=== PATIENT | female | born 1940 | race Caucasian/White ===

== ENCOUNTER 2019-06-17 13:47 | Inpatient (IN) | payer OTHER ==
[2019-06-17 14:01] VITALS: BMI 31.2
--- NOTE | 2019-06-17 14:29 | PDOC ---
Attending Attestation - Resident Resident Name: AdrianJose De Jesus - ED Attending Attestation I have performed the following: I have examined & evaluated the patient, The case was reviewed & discussed with the resident, I agree w/resident's findings & plan, Exceptions are as noted - HPI HPI: 06/17/19 14:29 79y F hx of suspected afib (on pradaxa), dm (on metformin), dementia presents via EMS for AMS. Per EMS, the pt herself called EMS as her 9 year old was loss , causing trouble. Pt denies any complaints currently. denies any cp, sob, cough , fever/chills, abd pain, le edema. 06/17/19 15:03 case dw family - apparently there is concern with her ability to live alone and take her medications consistently. dementia has been worsening recently. there has been concern for - Physicial Exam PE: 06/17/19 14:39 GENERAL: The patient is alert and oriented x 2 (self, place), Nontoxic - in no acute distress. HEAD: Normocephalic, atraumatic. EYES: extraocular movements intact, sclera anicteric, conjunctiva clear. ENT: Normal voice, Moist mucous membranes. NECK: Normal range of motion, supple LUNGS: Breath sounds equal, clear to auscultation bilaterally. No wheezes, no rhonchi, no rales. HEART: irregularly irregular. no murmers ABDOMEN: Soft, nontender, No guarding, no rebound.No CVA tenderness EXTREMITIES: Normal range of motion, no edema. No cyanosis. No erythema, or tenderness. NEUROLOGICAL: No facial assymetry, Normal speech, moving all 4 extremities spontaneously and symmetrically PSYCH: Normal mood, normal affect. SKIN: Warm, Dry, normal turgor, - Critical Care Time Total Critical Care Time: 35 Critical Care Statement: The care of this patient involved high complexity decision making to prevent further life threatening deterioration of the patient 's condition and/or to evaluate & treat vital organ system(s) failure or risk of failure. - Medical Decision Making 06/17/19 14:50 upon arrival pt noted to be tachycardic to 140 on EKG, irregularly irregular - afib - bp stable unclear if pt is on any rate control meds intiially, however family arrived pt is on dilitiazem will give 10mg diliazem IV 06/17/19 15:05 pts HR improved after dilitazem 10mg - HR currently in 70s 06/17/19 18:27 labs reviewed cmp hemolyzed - awiaitng repeat results will admit for further management of afib and possible nh placement 06/17/19 18:40 cmp returned noted for mild hypokalemia will replete will admit for further management to tele Heart Score/ECG Review - ECG Impressions Comment:: 06/17/19 15:40 EKG #1 Performed 14:05 Rate of 144 irregularly irregular abnormal R wave progression impresion:afib w rvr EKG 2 performed at 15:15 rate of 91 left axis devaition irregularly irregular impression: afib
--- NOTE | 2019-06-17 14:49 | PDOC ---
History of Present Illness - General Chief Complaint: Altered Mental Status Stated Complaint: Altered Mental Status Time Seen by Provider: 06/17/19 14:25 History Source: Patient Exam Limitations: No Limitations - History of Present Illness Initial Comments: 06/17/19 15:24 79 yo F with a hx of atrial fibrillation (on pradaxa), DM (on metformin) and dementia presents to the emergency department via EMS for AMS and placement per [facility]. Per EMS, the patient called 911 to report her 9 year old daughter "lost". Per the family, they stated the patient has been having worsening mental status for the past few months with increasing forgetfulness and confusion. The patient endorses forgetting to take some of her scheduled medications. Per the [facility], they are amendable to placing her in a facility for care and management. Per the patient, she denies pain. Allergies: NKDA Past History - Past Medical History Allergies/Adverse Reactions: Allergies Allergy/AdvReac Type Severity Reaction Status Date / Time No Known Allergies Allergy Verified 06/17/19 13:54 Home Medications: Ambulatory Orders Atorvastatin Ca [Lipitor] 10 mg PO DAILY 06/17/19 Dabigatran Etexilate Mesylate [Pradaxa -] 150 mg PO BID 06/17/19 Diltiazem HCl [Diltiazem 24Hr ER (Cd)] 240 mg PO DAILY 06/17/19 Escitalopram Oxalate [Lexapro -] 10 mg PO DAILY 06/17/19 Metoprolol Succinate 50 mg PO DAILY 06/17/19 metFORMIN HCL [Metformin ER Gastric] 1,000 mg PO BID 06/17/19 Donepezil HCl [Aricept -] 10 mg PO HS 30 Days #30 tablet 06/20/19 COPD: No - Immunization History Immunization Up to Date: No - Psycho Social/Smoking Cessation Hx Smoking History: Never smoked Have you smoked in the past 12 months: No Information on smoking cessation initiated: No Hx Alcohol Use: No Drug/Substance Use Hx: No Review of Systems - Review of Systems Able to Perform ROS?: No (DEMENTIA) *Physical Exam - Vital Signs Last Vital Signs Temp Pulse Resp BP Pulse Ox 97.8 F 61 16 142/96 98 06/17/19 13:49 06/17/19 13:49 06/17/19 13:49 06/17/19 13:49 01/21/20 13:49 - Physical Exam General Appearance: Yes: Nourished, Appropriately Dressed. No: Apparent Distress, Intoxicated HEENT: positive: EOMI, PREM, Normal Voice, Symmetrical, Pharynx Normal, Hearing Grossly Normal. negative: Pale Conjunctivae, Scleral Icterus (R), Scleral Icterus (L), Muffled/Hoarse voice, Pharyngeal Erythema, Tonsillar Exudate, Tonsillar Erythema, Nasal Congestion, Rhinorrhea, Excessive drooling Neck: positive: Trachea midline, Supple. negative: Tender, Lymphadenopathy (R) , Lymphadenopathy (L), Tender lateral, Tender midline Respiratory/Chest: positive: Lungs Clear, Normal Breath Sounds. negative: Chest Tender, Respiratory Distress, Accessory Muscle Use, Crackles, Rales, Rhonchi, Stridor, Wheezing Cardiovascular: positive: S1, S2, Tachycardia, Irregularly Irregular. negative : Systolic Murmur Gastrointestinal/Abdominal: positive: Normal Bowel Sounds, Flat, Soft. negative : Tender Lymphatic: negative: Adenopathy Musculoskeletal: positive: Normal Inspection. negative: CVA Tenderness, Vertebral Tenderness Extremity: positive: Normal Capillary Refill, Normal Inspection, Normal Range of Motion. negative: Tender, Swelling, Calf Tenderness Integumentary: positive: Normal Color, Dry, Warm Neurologic: positive: Alert, Normal Mood/Affect, Motor Strength 5/5. negative: Fully Oriented (oriented to self and place) ED Treatment Course - LABORATORY CBC & Chemistry Diagram: 06/19/19 06:20 06/19/19 06:20 - ADDITIONAL ORDERS Additional order review: Laboratory Results 06/17/19 14:03 POC Glucometer 196 06/17/19 14:03 POC Glucometer 196 Medical Decision Making - Medical Decision Making 79 yo F with a hx of atrial fibrillation (on pradaxa), DM (on metformin) and dementia presents to the emergency department via EMS for AMS and placement per [facility]. Initial vitals: Initial Vital Signs Temp Pulse Resp BP Pulse Ox 97.8 F 61 16 142/96 98 06/17/19 13:49 06/17/19 13:49 06/17/19 13:49 06/17/19 13:49 06/17/19 13:49 Work up: ddx: patient presents to the emergency department due to concerns of a lost family member incidentally, it was found on the monitor that the patient was in afib with rvr EKG: atrial fibrillation with RVR noted without ST elevations or depressions. QTc is 402 ms. patient was given 10 mg of diltiazem with rate control achieved Laboratory Tests 06/17/19 06/17/19 06/17/19 14:03 14:40 14:40 WBC 10.8 H RBC 5.07 Hgb 14.1 Hct 42.7 MCV 84.2 MCH 27.8 MCHC 33.0 RDW 14.2 Plt Count 238 MPV 9.6 Absolute Neuts (auto) 7.7 Neutrophils % 71.1 Lymphocytes % 20.3 Monocytes % 7.0 Eosinophils % 0.8 Basophils % 0.8 Nucleated RBC % 0 PT with INR INR Sodium Potassium Chloride Carbon Dioxide Anion Gap BUN Creatinine Est GFR (CKD-EPI)AfAm Est GFR (CKD-EPI)NonAf POC Glucometer 196 Random Glucose Calcium Magnesium Total Bilirubin AST ALT Alkaline Phosphatase Creatine Kinase 154 Creatine Kinase Index 2.0 CK-MB (CK-2) 3.2 Troponin I < 0.02 Total Protein Albumin 06/17/19 06/17/19 06/17/19 14:40 14:40 17:30 WBC RBC Hgb Hct MCV MCH MCHC RDW Plt Count MPV Absolute Neuts (auto) Neutrophils % Lymphocytes % Monocytes % Eosinophils % Basophils % Nucleated RBC % PT with INR 15.80 H INR 1.34 H Sodium Cancelled 141 Potassium Cancelled 3.3 L Chloride Cancelled 108 H Carbon Dioxide Cancelled 26 Anion Gap Cancelled 8 BUN Cancelled 16.2 Creatinine Cancelled 0.8 Est GFR (CKD-EPI)AfAm Cancelled 81.27 Est GFR (CKD-EPI)NonAf Cancelled 70.12 POC Glucometer Random Glucose Cancelled 151 H Calcium Cancelled 8.7 Magnesium Cancelled 1.4 L Total Bilirubin Cancelled 0.5 AST Cancelled 30 ALT Cancelled 25 Alkaline Phosphatase Cancelled 119 H Creatine Kinase Creatine Kinase Index CK-MB (CK-2) Troponin I Total Protein Cancelled 6.1 L Albumin Cancelled 3.5 patient noted to be hypomagnesiumia and hypokalemia. The patient EKG on repeat shows atrial fibrillation with rate of [address] elevations or depressions Patient was signed out to Dr. Diaz for further management and care Discharge - Discharge Information Problems reviewed: Yes Clinical Impression/Diagnosis: Rapid atrial fibrillation - Follow up/Referral - Patient Discharge Instructions - Post Discharge Activity
[2019-06-17] MEDS ORDERED: dilTIAZem HCL 50 MG/10 ML - 10 ML VIAL IVPUSH ONE (14:51)
[2019-06-17 15:48] LABS: BASO % 0.8 % (0-2.0); EOS % 0.8 % (0-4.5); HEMATOCRIT 42.7 % (32.4-45.2); HEMOGLOBIN 14.1 GM/dL (10.7-15.3); LYMPH % 20.3 % (8-40); MCH 27.8 pg (25.7-33.7); MEAN CELL VOLUME 84.2 fl (80-96); MEAN PLT VOLUME 9.6 fl (7.5-11.1); NEUT % 71.1 % (42.8-82.8); PLATELET COUNT 238 K/MM3 (134-434); RBC 5.07 M/mm3 (3.60-5.2); RDW 14.2 % (11.6-15.6); WHITE BLOOD COUNT 10.8 K/mm3 (4.0-10.0)
[2019-06-17 16:31] LABS: INR 1.34 (0.83-1.09); PROTHROMBIN TIME (PATIENT) 15.8 SEC (9.7-13.0)
[2019-06-17 18:23] LABS: ALBUMIN 3.5 g/dl (3.4-5.0); BILIRUBIN,TOTAL 0.5 mg/dL (0.2-1); BLOOD UREA NITROGEN 16.2 mg/dL (7-18); CALCIUM 8.7 mg/dL (8.5-10.1); CREATININE 0.8 mg/dL (0.55-1.3); MAGNESIUM 1.4 mg/dL (1.8-2.4); POTASSIUM 3.3 mmol/L (3.5-5.1); TOT PROT 6.1 g/dl (6.4-8.2)
[2019-06-17] MEDS ORDERED: MAGNESIUM SULF 50% (8.12 MEQ/2 ML-1 GM VIAL) IVPB ONE ×2 (18:29→21:15)
--- NOTE | 2019-06-17 19:22 | PDOC ---
*Physical Exam - Vital Signs Last Vital Signs Temp Pulse Resp BP Pulse Ox 97.8 F 84 18 116/72 98 06/17/19 13:49 06/17/19 15:38 06/17/19 15:38 06/17/19 15:38 06/17/19 15:38 - Physical Exam MDM: Received sign out from resident Dr. Campbell. In short, pt is a 79 y/o female presenting with rapid a-fib. Lives alone. Concern for ability to care for self. Family called and requested placement. Will f/u pending tele admission. 17 Jun 2019 19:21 PM Telephone discussion with resident Dr. Calvo. Verbally appraised of the pts HPI, ED course, and current plan of management. Will admit pt to telemetry for attending Dr. Ayers. ED Treatment Course - LABORATORY CBC & Chemistry Diagram: 06/17/19 14:40 06/17/19 17:30 - ADDITIONAL ORDERS Additional order review: Laboratory Results 06/17/19 06/17/19 06/17/19 17:30 14:40 14:40 PT with INR 15.80 H INR 1.34 H Sodium 141 Cancelled Potassium 3.3 L Cancelled Chloride 108 H Cancelled Carbon Dioxide 26 Cancelled Anion Gap 8 Cancelled BUN 16.2 Cancelled Creatinine 0.8 Cancelled Est GFR (CKD-EPI)AfAm 81.27 Cancelled Est GFR (CKD-EPI)NonAf 70.12 Cancelled POC Glucometer Random Glucose 151 H Cancelled Calcium 8.7 Cancelled Magnesium 1.4 L Cancelled Total Bilirubin 0.5 Cancelled AST 30 Cancelled ALT 25 Cancelled Alkaline Phosphatase 119 H Cancelled Creatine Kinase Creatine Kinase Index CK-MB (CK-2) Troponin I Total Protein 6.1 L Cancelled Albumin 3.5 Cancelled 06/17/19 06/17/19 14:40 14:03 PT with INR INR Sodium Potassium Chloride Carbon Dioxide Anion Gap BUN Creatinine Est GFR (CKD-EPI)AfAm Est GFR (CKD-EPI)NonAf POC Glucometer 196 Random Glucose Calcium Magnesium Total Bilirubin AST ALT Alkaline Phosphatase Creatine Kinase 154 Creatine Kinase Index 2.0 CK-MB (CK-2) 3.2 Troponin I < 0.02 Total Protein Albumin 06/17/19 06/17/19 14:40 14:03 RBC 5.07 MCV 84.2 MCHC 33.0 RDW 14.2 MPV 9.6 Neutrophils % 71.1 Lymphocytes % 20.3 Monocytes % 7.0 Eosinophils % 0.8 Basophils % 0.8 POC Glucometer 196 - Medications Given in the ED: ED Medications Discontinued Medications Generic Name Dose Route Start Last Admin Trade Name Freq PRN Reason Stop Dose Admin Diltiazem HCl 10 mg 06/17/19 14:51 06/17/19 14:54 Cardizem Injection - IVPUSH 06/17/19 14:52 10 mg ONCE ONE Administration Discharge - Discharge Information Problems reviewed: Yes Clinical Impression/Diagnosis: Rapid atrial fibrillation Condition: Stable - Admission Yes - Follow up/Referral Referrals: Kajal Cordoba MD [Primary Care Provider] - - Patient Discharge Instructions - Post Discharge Activity
[2019-06-17] MEDS ORDERED: MAGNESIUM SULF 50% (8.12 MEQ/2 ML-1 GM VIAL) ONE (19:24)
[2019-06-17] MEDS ORDERED: KCL 10 MEQ IVPB 10 MEQ/100 ML INFUS.BAG IVPB ONE (19:24)
--- NOTE | 2019-06-17 19:25 | PN ---
Teaching Attending Note Name of Resident: Kalen Faye ATTENDING PHYSICIAN STATEMENT I saw and evaluated the patient. I reviewed the resident's note and discussed the case with the resident. I agree with the resident's findings and plan as documented. SUBJECTIVE: Patient is a 79 year old woman with a PMH of Atrial fibrillation (on pradaxa), Breast cancer surgery, Cholecystectomy, NIDDM and Dementia who presents to the emergency department via EMS for AMS and placement per family. Per EMS, the patient called 911 to report her 9 year old daughter "lost". Per the family, they stated the patient has been having worsening mental status for the past few months with increasing forgetfulness and confusion. The patient reports forgetting to take some of her scheduled medications. Family is amendable to placing her in a facility for care and management. Patient denies chest pain, SOB, headache, chills, fever, nausea, vomiting or diarrhea. There is no history of alcohol, tobacco or illicit drug use. No sick contacts or recent travels. OBJECTIVE: Alert Vital Signs Period Temp Pulse Resp BP Sys/Arevalo Pulse Ox Last 24 Hr 97.8 F-98.6 F 61-127 14-18 105-142/68-96 96-99 HEENT: No Jaundice, eye redness or discharge, right pupil smaller than the left ; Normocephalic, atraumatic. External ears are normal and hearing is grossly intact. No nasal discharge. Neck: Supple, nontender. No palpable adenopathy or thyromegaly. No JVD Chest: Good effort. Clear to auscultation and percussion. Heart: Regular. No S3, rub or murmur Abdomen: Not distended, soft, nontender and no HSM. No rebound or guarding. Normal bowel sounds. Ext: Peripheral pulses intact. No leg edema. Skin: Warm and dry. No petechiae, rash or ecchymosis. Neuro: Alert. Oriented to person and place. CN 2-12 grossly intact. Sensation grossly intact in all four extremities and DTR are symmetric. Psych: Appropriate mood and affect. Good insight. Current Medications Generic Name Dose Route Start Last Admin Trade Name Freq PRN Reason Stop Dose Admin Potassium Chloride 10 meq in 100 mls @ 100 mls/hr 06/17/19 18:30 Potassium Chloride 10 Meq Premix Ivpb - IVPB 01/21/20 20:29 Q60M KAROL Abnormal Lab Results 06/17/19 06/17/19 06/17/19 14:40 14:40 17:30 WBC 10.8 H PT with INR 15.80 H INR 1.34 H Potassium 3.3 L Chloride 108 H Random Glucose 151 H Magnesium 1.4 L Alkaline Phosphatase 119 H Total Protein 6.1 L ASSESSMENT AND PLAN: 1. Failure to thrive - EKG on arrival showed Afib with rate of 144 and anterior infarct of undetermined age. Got Cardiazem 10 mg IV and rate improved to 91. 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 CXR shows cardiomegaly, blunted left costophrenic angle, possible left side effusion and pulmonary vascular congestion. Hypokalemia and hypomagnesemia are unexplained. Will give IV and PO KCL and IV MgSO4. Urinalysis pending. Will get ECHO to evaluate LV function and consult social scientist for placement. Will continue comprehensive care for all of patients comorbid conditions including Pradaxa and Cardiazem PO for Afib. 2. DM For now, we will hold the home diabetes drugs and implement sliding scale insulin regimen. Provide comprehensive diabetes care with patient teaching and counseling about the importance of adherence to prescribed diabetes regimen, euglycemia, eye care and foot care. 3. Obesity Counseled on the risks associated with obesity. Will provide patient all the necessary assistance, counseling and positive reinforcement to facilitate weight loss. Consult card grinder. 4. DVT prophylaxis - Lovenox 40 mg SQ q 24 hours. 5. Advance directives - Full code
[2019-06-17] MEDS: KCL 10 MEQ IVPB 10 MEQ/100 ML INFUS.BAG IVPB SCH ×2 (20:12→23:57)
[2019-06-17] MEDS ORDERED: dilTIAZem HCL 50 MG/10 ML - 10 ML VIAL IVPUSH PRN (20:50)
[2019-06-17] MEDS ORDERED: POTASSIUM CHLORIDE TABS 20 MEQ TABLET.ER (FP) PO ONE (21:15)
[2019-06-17] MEDS ORDERED: KCL 10 MEQ IVPB 10 MEQ/100 ML INFUS.BAG IVPB SCH (21:15)
--- NOTE | 2019-06-17 21:15 | HP ---
CHIEF COMPLAINT: Dementia for the past 12 months, found to be in AFib w RVR on presentation PCP: Dr. Cordoba HISTORY OF PRESENT ILLNESS: This is a 79 year old female with PMH of AFib (on Pradaxa), DM (on metformin), Dementia, and stroke. Patient was AOx2 upon examination, and had no recollection of why she was at the hospital. I spoke with the son over the phone for a more detailed history. He stated that the patient lives alone and has had worsening forgetfulness over the past 12 months. Around 9AM, she called the police to report that her 9 year old son was missing (he is much older). She was then brought to the ER for dementia/AMS, and family reports no acute changes in her mental status. Upon presentation to the ER, she was found to be in AFib with RVR. As per family , she was diagnosed with AFib after she suffered a stroke after undergoing surgery for breast CA. She was on Wafarain at the time (family not sure why), which was stopped resulting in a stroke, and she was diagnosed with AFib shortly after. Family not sure if she has paroxysmal/persistent type, not sure when her last Echo was done. She is currently on Pradaxa, but the patient may have been missing doses due to her dementia. She was due to see her senior it business analyst (Dr. Dye) this week. She had an MRI in September 2018 at [facility] (Dr. Chicas), and is currently on Donepazil for Alzheimer's. She denies any fevers, chills, chest pain, palpitations, nausea, vomiting, diarrhea, SOB, or dizziness, and states that she feels fine. 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, no acute pathology (2) CXR: Cardiomegaly with some congestion (3) WBC 10.8 Recent Travel: denies PAST MEDICAL HISTORY: As listed in HPI PAST SURGICAL HISTORY: Surgery for Breast CA 7 years ago (Family unsure of type) GB removal approximately 20 years ago Social History: Smoking: quit many years ago, smoked 1/2 ppd for approximately 30-40 years Alcohol: denies Drugs: denies Allergies No Known Allergies Allergy (Verified 06/17/19 13:54) HOME MEDICATIONS: REVIEW OF SYSTEMS CONSTITUTIONAL: Absent: fever, chills, diaphoresis, generalized weakness, malaise, loss of appetite, weight change HEENT: Absent: rhinorrhea, nasal congestion, throat pain, throat swelling, difficulty swallowing, mouth swelling, ear pain, eye pain, visual changes CARDIOVASCULAR: Absent: chest pain, syncope, palpitations, irregular heart rate, lightheadedness , peripheral edema RESPIRATORY: Absent: cough, shortness of breath, dyspnea with exertion, orthopnea, wheezing, stridor, hemoptysis GASTROINTESTINAL: Absent: abdominal pain, abdominal distension, nausea, vomiting, diarrhea, constipation, melena, hematochezia GENITOURINARY: Absent: dysuria, frequency, urgency, hesitancy, hematuria, flank pain, genital pain MUSCULOSKELETAL: Absent: myalgia, arthralgia, joint swelling, back pain, neck pain SKIN: Absent: rash, itching, pallor HEMATOLOGIC/IMMUNOLOGIC: Absent: easy bleeding, easy bruising, lymphadenopathy, frequent infections ENDOCRINE: Absent: unexplained weight gain, unexplained weight loss, heat intolerance, cold intolerance NEUROLOGIC: Absent: headache, focal weakness or paresthesias, dizziness, unsteady gait, seizure, mental status changes, bladder or bowel incontinence PSYCHIATRIC: Absent: anxiety, depression, suicidal or homicidal ideation, hallucinations. PHYSICAL EXAMINATION Vital Signs - 24 hr 06/17/19 06/17/19 06/17/19 13:49 13:58 14:54 Temperature 97.8 F Pulse Rate 61 Pulse Rate [ 127 H Apical] Respiratory 16 14 Rate Blood Pressure 142/96 Blood Pressure 116/87 [Right Arm] O2 Sat by Pulse 98 99 99 Oximetry (%) 06/17/19 06/17/19 06/17/19 15:02 15:38 19:15 Temperature 98.6 F Pulse Rate Pulse Rate [ 88 84 98 H Apical] Respiratory 18 18 18 Rate Blood Pressure Blood Pressure 105/73 116/72 116/68 [Right Arm] O2 Sat by Pulse 98 98 96 Oximetry (%) 06/17/19 20:54 Temperature Pulse Rate Pulse Rate [ 99 H Apical] Respiratory 18 Rate Blood Pressure Blood Pressure 117/66 [Right Arm] O2 Sat by Pulse 98 Oximetry (%) GENERAL: AOx2 to place and self HEAD: Normal with no signs of trauma. EYES: Pupils unequal R<L, round and reactive to light, extraocular movements intact, sclera anicteric, conjunctiva clear. No lid lag. EARS, NOSE, THROAT: Ears normal, nares patent, oropharynx clear without exudates. Moist mucous membranes. NECK: Normal range of motion, supple without lymphadenopathy, JVD, or masses. LUNGS: Breath sounds equal, clear to auscultation bilaterally. No wheezes, and no crackles. No accessory muscle use. HEART: Irregular rate and rhythm without murmur, rub or gallop. ABDOMEN: Soft, nontender, not distended, normoactive bowel sounds, no guarding, no rebound, no masses. No hepatomegaly or splenomegaly. MUSCULOSKELETAL: Normal range of motion at all joints. No bony deformities or tenderness. No CVA tenderness. UPPER EXTREMITIES: 2+ pulses, warm, well-perfused. No cyanosis. No clubbing. No peripheral edema. LOWER EXTREMITIES: 2+ pulses, warm, well-perfused. No calf tenderness. No peripheral edema. NEUROLOGICAL: Cranial nerves II-XII intact. Normal speech PSYCHIATRIC: Cooperative. Good eye contact. Appropriate mood and affect. SKIN: Warm, dry, normal turgor, no rashes or lesions noted, normal capillary refill. Laboratory Results - last 24 hr 06/17/19 06/17/19 06/17/19 14:03 14:40 14:40 WBC 10.8 H RBC 5.07 Hgb 14.1 Hct 42.7 MCV 84.2 MCH 27.8 MCHC 33.0 RDW 14.2 Plt Count 238 MPV 9.6 Absolute Neuts (auto) 7.7 Neutrophils % 71.1 Lymphocytes % 20.3 Monocytes % 7.0 Eosinophils % 0.8 Basophils % 0.8 Nucleated RBC % 0 PT with INR INR Sodium Potassium Chloride Carbon Dioxide Anion Gap BUN Creatinine Est GFR (CKD-EPI)AfAm Est GFR (CKD-EPI)NonAf POC Glucometer 196 Random Glucose Calcium Magnesium Total Bilirubin AST ALT Alkaline Phosphatase Creatine Kinase 154 Creatine Kinase Index 2.0 CK-MB (CK-2) 3.2 Troponin I < 0.02 Total Protein Albumin 06/17/19 06/17/19 06/17/19 14:40 14:40 17:30 WBC RBC Hgb Hct MCV MCH MCHC RDW Plt Count MPV Absolute Neuts (auto) Neutrophils % Lymphocytes % Monocytes % Eosinophils % Basophils % Nucleated RBC % PT with INR 15.80 H INR 1.34 H Sodium Cancelled 141 Potassium Cancelled 3.3 L Chloride Cancelled 108 H Carbon Dioxide Cancelled 26 Anion Gap Cancelled 8 BUN Cancelled 16.2 Creatinine Cancelled 0.8 Est GFR (CKD-EPI)AfAm Cancelled 81.27 Est GFR (CKD-EPI)NonAf Cancelled 70.12 POC Glucometer Random Glucose Cancelled 151 H Calcium Cancelled 8.7 Magnesium Cancelled 1.4 L Total Bilirubin Cancelled 0.5 AST Cancelled 30 ALT Cancelled 25 Alkaline Phosphatase Cancelled 119 H Creatine Kinase Creatine Kinase Index CK-MB (CK-2) Troponin I Total Protein Cancelled 6.1 L Albumin Cancelled 3.5 ASSESSMENT/PLAN: 79F with PMH of AFib, DM, Dementia, and stroke. She presented to the ER for dementia, found to be in AFib w RVR on presentation, and was admitted for management of AFib w RVR. #AFib with RVR - Recurrence likely because of pt forgetting her meds due to dementia, other causes may be hypokalemia induced - [id number] score 6 (Hx of of DM, stroke, age >75, female) - Pradaxa continued for AC - EKG showed HR 144, irregularly irregular, given 10mg Dilt, HR went down to 91 , and 84 at the time of examination - Diltiazem home dose continued - Dilatiazem 10mg IV PRN in case of RVR on home dose (0.25mg/kg over 2 minutes = up to18mg may be given initially) - Echo in AM (CXR shows cardiomegaly with mild congestion, family not sure when last echo was done) - Cardio consult with Dr. Gutierrez (pt's senior it business analyst) #Hx of Dementia - Likely 2/2 Alzheimer's, will r/o other causes including vascular/infectious, or electrolyte abnormalities - UA pending - B12, TSH ordered in AM - Continue Donepazil #Hx of DM - Family states patient refuses BGM at home - HbA1c, pt may be missing doses of meds at home due to dementia - BGM ACHS with Novolog SS started, holding home Metformin #FEN - K 3.3, given 20meq IV in ER, 20meq IV and 20meq PO ordered - Mg 1.4, given 1g IVPB in ER, 1 gm IVPB ordered again - DM diet ordered #DVT - No Lovenox, patient already on Pradaxa #Dispo - Tele monitoring for AFib - Pt currently lives alone, on D/C, will work with psych social worker to have her placed somewhere she may be monitored Visit type - Emergency Visit Emergency Visit: Yes ED Registration Date: 06/17/19 Care time: The patient presented to the Emergency Department on the above date and was hospitalized for further evaluation of their emergent condition. - New Patient This patient is new to me today: Yes Date on this admission: 06/18/19 - Critical Care Critical Care patient: No ATTENDING PHYSICIAN STATEMENT I saw and evaluated the patient. I reviewed the resident's note and discussed the case with the resident. I agree with the resident's findings and plan as documented. SUBJECTIVE: OBJECTIVE: ASSESSMENT AND PLAN:
[2019-06-17] MEDS: DABIGATRAN ETEXILATE MESYLATE 150 MG CAPSULE PO SCH (22:23)
[2019-06-17] MEDS: INSULIN SLIDING SCALE (NOVOLOG) 1 VIAL SQ SCH (22:25)
[2019-06-17] MEDS ORDERED: MELATONIN 5 MG TABLETS PO ONE (23:37)
[2019-06-18] MEDS ORDERED: ESCITALOPRAM OXALATE 10 MG TABLET PO ONE (05:11)
[2019-06-18] MEDS: INSULIN SLIDING SCALE (NOVOLOG) 1 VIAL SQ SCH ×4 (06:04→21:18)
[2019-06-18 06:56] LABS: BASO % 1.1 % (0-2.0); EOS % 1.2 % (0-4.5); HEMATOCRIT 40.4 % (32.4-45.2); HEMOGLOBIN 13.4 GM/dL (10.7-15.3); LYMPH % 27.2 % (8-40); MCH 27.9 pg (25.7-33.7); MCHC 33.2 g/dl (32.0-36.0); MEAN CELL VOLUME 84.1 fl (80-96); MEAN PLT VOLUME 9.2 fl (7.5-11.1); MONO % 9.9 % (3.8-10.2); NEUT % 60.6 % (42.8-82.8); PLATELET COUNT 218 K/MM3 (134-434); RDW 14.2 % (11.6-15.6); WHITE BLOOD COUNT 7.6 K/mm3 (4.0-10.0)
[2019-06-18 07:31] LABS: EPI CELLS 3.9 /HPF (0-5/HPF); HYALINE CASTS 17 /lpf (0-8); URINE APPEARANCE CLOUDY; URINE BACTERIA 2400.3 /hpf (NEGATIVE); URINE BILIRUBIN NEGATIVE (NEGATIVE); URINE COLOR YELLOW; URINE GLUCOSE (UA) NEGATIVE (NEGATIVE); URINE KETONE 1+ (NEGATIVE); URINE LEUK ESTERASE 2+ (NEGATIVE); URINE NITRITE POSITIVE (NEGATIVE); URINE PROTEIN NEGATIVE (NEGATIVE); URINE RBC 1 /hpf (0-4); URINE UROBILINOGEN 0.2 mg/dL (0.2-1.0); URINE WBC 55 /hpf (0-5)
[2019-06-18 07:32] LABS: ALBUMIN 3.4 g/dl (3.4-5.0); BILIRUBIN,TOTAL 0.7 mg/dL (0.2-1); BLOOD UREA NITROGEN 11.7 mg/dL (7-18); CALCIUM 8.6 mg/dL (8.5-10.1); CREATININE 0.7 mg/dL (0.55-1.3); POTASSIUM 3.4 mmol/L (3.5-5.1); TOT PROT 6.1 g/dl (6.4-8.2)
[2019-06-18] MEDS: DABIGATRAN ETEXILATE MESYLATE 150 MG CAPSULE PO SCH ×2 (10:36→23:10)
--- NOTE | 2019-06-18 10:45 | EKG ---
Test Reason : Blood Pressure : / mmHG Vent. Rate : 091 BPM Atrial Rate : 075 BPM P-R Int : 000 ms QRS Dur : 088 ms QT Int : 344 ms P-R-T Axes : 000 -32 021 degrees QTc Int : 423 ms POOR DATA QUALITY, INTERPRETATION MAY BE ADVERSELY AFFECTED ATRIAL FIBRILLATION WITH PREMATURE VENTRICULAR OR ABERRANTLY CONDUCTED COMPLEXES LEFT AXIS DEVIATION CANNOT RULE OUT ANTERIOR INFARCT (CITED ON OR BEFORE 17-JUN-2019) ABNORMAL ECG WHEN COMPARED WITH ECG OF 17-JUN-2019 14:05, VENT. RATE HAS DECREASED BY 53 BPM NONSPECIFIC T WAVE ABNORMALITY, IMPROVED IN LATERAL LEADS Confirmed by TAMIKO MARIE MD ([id number]) on 06/18/2019 10:45:27 AM Referred By: Confirmed By:TAMIKO MARIE MD
--- NOTE | 2019-06-18 10:46 | EKG ---
Test Reason : Blood Pressure : / mmHG Vent. Rate : 144 BPM Atrial Rate : 182 BPM P-R Int : 000 ms QRS Dur : 076 ms QT Int : 260 ms P-R-T Axes : 000 -28 -14 degrees QTc Int : 402 ms POOR DATA QUALITY, INTERPRETATION MAY BE ADVERSELY AFFECTED ATRIAL FIBRILLATION WITH RAPID VENTRICULAR RESPONSE WITH PREMATURE VENTRICULAR OR ABERRANTLY CONDUCTED COMPLEXES ANTERIOR INFARCT , AGE UNDETERMINED ABNORMAL ECG NO PREVIOUS ECGS AVAILABLE Confirmed by FRANK ROBERTS, TAMIKO ([id number]) on 06/18/2019 10:45:53 AM Referred By: Confirmed By:TAMIKO MARIE MD
--- NOTE | 2019-06-18 12:23 | CON.CARD ---
Consult Consult Specialty:: Cardiology Referred by:: Medicine Reason for Consultation:: afib - History of Present Illness Chief Complaint: forgetful History of Present Illness: 79F h/o afib, DM, dementia, stroke p/w altered mental status. Pt unable to give history, obtained from chart. Called police on day of admission to report her 9 year old son was missing (has adult son) and was brought to ER for dementia and lat mental status. Was in afib with rvr in the ER. Sees Dr. Gutierrez for cardio. Unclear if missed doses of meds. No chest pain, palps, dizziness, dyspnea. - Alcohol/Substance Use Hx Alcohol Use: No - Smoking History Smoking history: Never smoked Have you smoked in the past 12 months: No Home Medications - Allergies Allergies/Adverse Reactions: Allergies Allergy/AdvReac Type Severity Reaction Status Date / Time No Known Allergies Allergy Verified 06/17/19 13:54 - Home Medications Home Medications: Ambulatory Orders Atorvastatin Ca [Lipitor] 10 mg PO DAILY 06/17/19 Dabigatran Etexilate Mesylate [Pradaxa -] 150 mg PO BID 06/17/19 Diltiazem HCl [Diltiazem 24Hr ER (Cd)] 240 mg PO DAILY 06/17/19 Donepezil HCl [Aricept -] 5 mg PO DAILY 06/17/19 Escitalopram Oxalate [Lexapro -] 10 mg PO DAILY 06/17/19 Metoprolol Succinate 50 mg PO DAILY 06/17/19 metFORMIN HCL [Metformin ER Gastric] 1,000 mg PO BID 06/17/19 Family Medical History Family History: Unable to Obtain Review of Systems - Review of Systems Constitutional: reports: No Symptoms Eyes: reports: No Symptoms HENT: reports: No Symptoms Neck: reports: No Symptoms Cardiovascular: reports: No Symptoms Respiratory: reports: No Symptoms Gastrointestinal: reports: No Symptoms Genitourinary: reports: No Symptoms Musculoskeletal: reports: No Symptoms Integumentary: reports: No Symptoms Neurological: reports: No Symptoms Endocrine: reports: No Symptoms Hematology/Lymphatic: reports: No Symptoms Psychiatric: reports: No Symptoms Vital Signs: Vital Signs Temperature 98.3 F 06/18/19 05:45 Pulse Rate 96 H 06/18/19 05:45 Respiratory Rate 18 06/18/19 05:45 Blood Pressure 133/66 06/18/19 05:45 O2 Sat by Pulse Oximetry (%) 97 06/17/19 21:00 Constitutional: Yes: No Distress, Calm Eyes: Yes: Conjunctiva Clear, EOM Intact HENT: Yes: Atraumatic, Normocephalic Neck: Yes: Supple, Trachea Midline Respiratory: Yes: Regular, CTA Bilaterally Gastrointestinal: Yes: Normal Bowel Sounds, Soft Cardiovascular: Yes: Pulse Irregular Heart Sounds: Yes: S1, S2 Extremities: No: Cold Edema: No Integumentary: No: Jaundice Neurological: Yes: Alert Psychiatric: No: Agitated - Other Data Labs, Other Data: CBC, BMP 06/18/19 05:26 06/18/19 05:26 INR, PTT INR 1.34 (0.83-1.09) H 06/17/19 14:40 Troponin, BNP 06/17/19 14:40 Troponin I < 0.02 Troponin, BNP 06/17/19 14:40 Troponin I < 0.02 Assessment/Plan EKG: afib, LAD, PVC, no ischemic changes CXR: no congestion tele: afib 110s-130s altered mental status, dementia - workup per primary afib - likely rvr due to forgetting meds - replete lytes for K>4, Mg >2 - cont pradaxa, cardizem, metoprolol - monitor on tele - check echo HLD - cont statin DM - manage per primary
--- NOTE | 2019-06-18 14:28 | ECHO ---
Name: ЮЛИЯ CEE Exam:Adult Echocardiogram Study Date: 06/18/2019 11:30 AM Age: 79 yrs Height: 60 in Weight: 160 lb BSA: 1.7 m2 MMode/2D Measurements & Calculations IVSd: 0.93 cm Ao root diam: 2.2 cm LVIDd: 3.8 cm LA dimension: 3.9 cm LVIDs: 3.2 cm ACS: 1.6 cm LVPWd: 1.1 cm EDV(Teich): 63.5 ml LVOT diam: 1.7 cm ESV(Teich): 41.5 ml RV S Joey: 13.4 cm/sec Doppler Measurements & Calculations MV E max joey: 111.1 cm/sec Ao V2 max: 101.6 cm/sec MV dec time: 0.13 sec Ao max P.1 mmHg Ao V2 mean: 66.2 cm/sec Ao mean P.0 mmHg Ao V2 VTI: 19.6 cm JAVAN(I,D): 1.6 cm2 JAVAN(V,D): 1.7 cm2 LV V1 max P.2 mmHg MR max joey: 482.8 cm/sec LV V1 mean P.1 mmHg MR max P.1 mmHg LV V1 max: 74.5 cm/sec LV V1 mean: 46.2 cm/sec LV V1 VTI: 13.3 cm SV(LVOT): 31.7 ml TR max joey: 173.7 cm/sec TR max P.7 mmHg PA V2 max: 57.3 cm/sec Med Peak E' Joey: 4.3 cm/sec PA max P.3 mmHg Med E/e': 25.9 Lat Peak E' Joey: 4.8 cm/sec Lat E/e': 23.3 Procedure The study was technically difficult with many images being suboptimal in quality. Left Ventricle The left ventricle is grossly normal size. The left ventricle is not well visualized. Due to the poor quality of the echocardiogram, an assessment of left ventricular ejection fraction cannot be made. Left ventr icular systolic function is moderate to severely reduced. Regional wall motion abnormalities cannot be exclu ded due to limited visualization. Right Ventricle The right ventricle is not well visualized. Atria The left atrium is mildly dilated. The right atrium is mildly dilated. Mitral Valve There is mild mitral valve thickening. There is no mitral valve stenosis. There is mild to moderate m itral regurgitation. Tricuspid Valve The tricuspid valve is not well visualized. There is no tricuspid stenosis. There is Trace to mild tr icuspid regurgitation. Right ventricular systolic pressure is normal. Aortic Valve The aortic valve is not well visualized. No hemodynamically significant valvular aortic stenosis. No aortic regurgitation is present. Pulmonic Valve The pulmonic valve is not well visualized. Great Vessels The aortic root is normal size. Pericardium/Pleura There is no pericardial effusion. Interpretation Summary The study was technically difficult with many images being suboptimal in quality. The left ventricle is grossly normal size. The left ventricle is not well visualized. The left atrium is mildly dilated. The right atrium is mildly dilated. Due to the poor quality of the echocardiogram, an assessment of left ventricular ejection fraction ca nnot be made. Left ventricular systolic function is moderate to severely reduced. There is mild to moderate mitral regurgitation. Right ventricular systolic pressure is normal. There is Trace to mild tricuspid regurgitation. Regional wall motion abnormalities cannot be excluded due to limited visualization. MD Mike Butterfield 06/18/2019 02:27 PM
[2019-06-18] MEDS ORDERED: POTASSIUM CHLORIDE TABS 20 MEQ TABLET.ER (FP) PO ONE (16:38)
--- NOTE | 2019-06-18 17:53 | PN ---
Physical Exam: SUBJECTIVE: Patient seen and examined at bedside. Overnight she required 10 mg of diltiazem given for afib with RVR. This AM she offers no complaints. OBJECTIVE: Vital Signs Temp Pulse Resp BP Pulse Ox 98.1 F 80 20 147/80 97 06/18/19 14:26 06/18/19 14:26 06/18/19 14:26 06/18/19 14:26 06/17/19 21:00 GENERAL: AOx2 to person and place, in no acute distress. HEAD: NCAT EYES: BUBBA, EOMI, conjunctiva clear. ENT: Ears normal, nares patent, oropharynx clear without exudates. Moist mucous membranes. NECK: Normal range of motion, supple without lymphadenopathy, JVD, or masses. LUNGS: CTAB. No wheezes, and no crackles. No accessory muscle use. HEART: Irregularly irregular. No murmurs. ABDOMEN: Soft, BS present in all 4 quadrants, non-distended, no JVD, MUSCULOSKELETAL: No bony deformities or tenderness. No CVA tenderness. UPPER EXTREMITIES: 2+ pulses, warm, well-perfused. No cyanosis. No clubbing. No peripheral edema. LOWER EXTREMITIES: 2+ pulses, warm, well-perfused. No calf tenderness. No peripheral edema. NEUROLOGICAL: No focal deficits. Cranial nerves II-XII intact. Normal speech. Gait not appreciated. PSYCHIATRIC: Cooperative. Good eye contact. Appropriate mood and affect. SKIN: Warm, dry, normal turgor, no rashes or lesions noted, normal capillary refill. Laboratory Results - last 24 hr 06/17/19 06/17/19 06/18/19 17:30 22:08 05:25 WBC RBC Hgb Hct MCV MCH MCHC RDW Plt Count MPV Absolute Neuts (auto) Neutrophils % Lymphocytes % Monocytes % Eosinophils % Basophils % Nucleated RBC % Sodium 141 Potassium 3.3 L Chloride 108 H Carbon Dioxide 26 Anion Gap 8 BUN 16.2 Creatinine 0.8 Est GFR (CKD-EPI)AfAm 81.27 Est GFR (CKD-EPI)NonAf 70.12 POC Glucometer 133 109 Random Glucose 151 H Calcium 8.7 Magnesium 1.4 L Total Bilirubin 0.5 AST 30 ALT 25 Alkaline Phosphatase 119 H Total Protein 6.1 L Albumin 3.5 TSH Urine Color Urine Appearance Urine pH Ur Specific [place] Urine Protein Urine Glucose (UA) Urine Ketones Urine Blood Urine Nitrite Urine Bilirubin Urine Urobilinogen Ur Leukocyte Esterase Urine WBC (Auto) Urine RBC (Auto) Urine Casts (Auto) U Epithel Cells (Auto) Urine Bacteria (Auto) 06/18/19 06/18/19 06/18/19 05:26 05:26 05:45 WBC 7.6 RBC 4.80 Hgb 13.4 Hct 40.4 MCV 84.1 MCH 27.9 MCHC 33.2 RDW 14.2 Plt Count 218 MPV 9.2 Absolute Neuts (auto) 4.6 Neutrophils % 60.6 Lymphocytes % 27.2 D Monocytes % 9.9 Eosinophils % 1.2 Basophils % 1.1 Nucleated RBC % 0 Sodium 141 Potassium 3.4 L Chloride 108 H Carbon Dioxide 22 Anion Gap 10 BUN 11.7 Creatinine 0.7 Est GFR (CKD-EPI)AfAm 95.51 Est GFR (CKD-EPI)NonAf 82.41 POC Glucometer Random Glucose 118 H Calcium 8.6 Magnesium Total Bilirubin 0.7 AST 28 ALT 23 Alkaline Phosphatase 116 Total Protein 6.1 L Albumin 3.4 TSH 1.51 Urine Color Yellow Urine Appearance Cloudy Urine pH 5.0 Ur Specific [place] 1.017 Urine Protein Negative Urine Glucose (UA) Negative Urine Ketones 1+ H Urine Blood Negative Urine Nitrite Positive H Urine Bilirubin Negative Urine Urobilinogen 0.2 Ur Leukocyte Esterase 2+ H Urine WBC (Auto) 55 Urine RBC (Auto) 1 Urine Casts (Auto) 17 U Epithel Cells (Auto) 3.9 Urine Bacteria (Auto) 2400.3 06/18/19 06/18/19 12:29 17:09 WBC RBC Hgb Hct MCV MCH MCHC RDW Plt Count MPV Absolute Neuts (auto) Neutrophils % Lymphocytes % Monocytes % Eosinophils % Basophils % Nucleated RBC % Sodium Potassium Chloride Carbon Dioxide Anion Gap BUN Creatinine Est GFR (CKD-EPI)AfAm Est GFR (CKD-EPI)NonAf POC Glucometer 143 234 Random Glucose Calcium Magnesium Total Bilirubin AST ALT Alkaline Phosphatase Total Protein Albumin TSH Urine Color Urine Appearance Urine pH Ur Specific [place] Urine Protein Urine Glucose (UA) Urine Ketones Urine Blood Urine Nitrite Urine Bilirubin Urine Urobilinogen Ur Leukocyte Esterase Urine WBC (Auto) Urine RBC (Auto) Urine Casts (Auto) U Epithel Cells (Auto) Urine Bacteria (Auto) Active Medications Atorvastatin Calcium (Lipitor -) 10 mg PO HS KAROL Last Admin: 06/18/19 21:18 Dose: 10 mg Dabigatran (Pradaxa -) 150 mg PO BID [facility] Last Admin: 06/18/19 10:36 Dose: 150 mg Diltiazem HCl (Cardizem Injection -) 10 mg IVPUSH ONCE PRN PRN Reason: TACHYCARDIA Diltiazem HCl (Cardizem Cd -) 240 mg PO DAILY [facility] Last Admin: 06/18/19 10:36 Dose: 240 mg Donepezil HCl (Aricept -) 5 mg PO HS [facility] Last Admin: 06/18/19 21:18 Dose: 5 mg Escitalopram Oxalate (Lexapro -) 10 mg PO DAILY [facility] Insulin Aspart (Novolog Vial Sliding Scale -) 1 vial SQ ACHS [facility]; Protocol Last Admin: 06/18/19 21:18 Dose: 4 unit Melatonin (Melatonin) 5 mg PO HS PRN PRN Reason: INSOMNIA Metoprolol Succinate (Toprol Xl -) 50 mg PO DAILY [facility] Last Admin: 06/18/19 10:36 Dose: 50 mg ASSESSMENT/PLAN: 79 y/o female PMH of DM, Afib, dementia, and stroke. She presented to the ER for dementia, found to be in AFib w RVR on presentation, and was admitted for management of AFib w RVR. # Dementia - CT head: No acute pathology - UA: 2+ LE and nitrites but no dysuria or hematuria - Home regimen includes: donepezil 5 mg po hs # Afib with RVR - Continue home regimen: diltiazem 240 mg PO QD, metoprolol 50 mg PO QD, Pradaxa (dabigatran) 150 mg PO BID # Pyuria - UA: 2+ LE and nitrites but no dysuria or hematuria # F/E/N - PO - Cont. to monitor - Diabetic diet # DVT prophylaxis - Heparin SQ # Disposition - Continuous cardiac monitoring - Pt likely forgetting to take her medications. She requires assistance from case management for better adherence. Elvin Donato MD Visit type - Emergency Visit Emergency Visit: No - New Patient This patient is new to me today: No - Critical Care Critical Care patient: No ATTENDING PHYSICIAN STATEMENT I saw and evaluated the patient. I reviewed the resident's note and discussed the case with the resident. I agree with the resident's findings and plan as documented. SUBJECTIVE: OBJECTIVE: ASSESSMENT AND PLAN:
--- NOTE | 2019-06-18 18:39 | PN ---
Teaching Attending Note Name of Resident: Elvin Donato ATTENDING PHYSICIAN STATEMENT I saw and evaluated the patient. I reviewed the resident's note and discussed the case with the resident. I agree with the resident's findings and plan as documented. SUBJECTIVE: No pain, no SOB , no weakness. poor historian. denies abd pain or dysuria OBJECTIVE: NAD, awake, alert, not oriented to place, age, or time . CV: irreg irreg Lungs : CTAB Abd: soft, NT, ND , NL BS Ext: No edema or erythema on lower extremities ASSESSMENT AND PLAN: 79 y/o lady with h/o Afib, DM, dementia, stroke, breast ca,CCY, who presented due to worsening chronic confusion 1- Worsening dementia. Doubt acute change in mentation . no signs of infectin CT reviewed. old R sided infarct, no new infarcts. No metabolic etiologies, no signs of infection 2- A fib with RVR: likely due to non compliance - cont her home cardizem and toprol. - cont pradaxa. - Nl TSH - echo with moderately reduced EF. and MR 3- asymptomatic pyuria. no signs of UTI. follow cx. 4- H/o stroke: cont dabigatran. PT eval. Social work .
[2019-06-18] MEDS: ATORVASTATIN CA 10 MG TABLET (FP) PO SCH (21:18)
[2019-06-18] MEDS ORDERED: DONEPEZIL HCL 5 MG TABLET (FP) PO SCH (22:00)
[2019-06-18] MEDS: MELATONIN 5 MG TABLETS PO PRN (23:10)
[2019-06-19] MEDS ORDERED: ESCITALOPRAM OXALATE 10 MG TABLET PO ONE (00:40)
[2019-06-19] MEDS: INSULIN SLIDING SCALE (NOVOLOG) 1 VIAL SQ SCH ×4 (06:35→21:24)
[2019-06-19 07:52] LABS: HEMATOCRIT 40.4 % (32.4-45.2); HEMOGLOBIN 13.3 GM/dL (10.7-15.3); MCH 27.8 pg (25.7-33.7); MCHC 32.9 g/dl (32.0-36.0); MEAN CELL VOLUME 84.3 fl (80-96); MEAN PLT VOLUME 9.2 fl (7.5-11.1); PLATELET COUNT 232 K/MM3 (134-434); RBC 4.79 M/mm3 (3.60-5.2); RDW 14.6 % (11.6-15.6); WHITE BLOOD COUNT 7.3 K/mm3 (4.0-10.0)
[2019-06-19 08:18] LABS: ALBUMIN 3.8 g/dl (3.4-5.0); BILIRUBIN,TOTAL 0.6 mg/dL (0.2-1); BLOOD UREA NITROGEN 16.4 mg/dL (7-18); CALCIUM 9.1 mg/dL (8.5-10.1); CREATININE 0.8 mg/dL (0.55-1.3); POTASSIUM 3.9 mmol/L (3.5-5.1); TOT PROT 6.7 g/dl (6.4-8.2)
--- NOTE | 2019-06-19 08:42 | CONSULT ---
Consult - text type - Consultation Consultation Note: Neurology CHIEF COMPLAINT: Dementia for the past 12 months, found to be in AFib w RVR on presentation PCP: Dr. Cordoba HISTORY OF PRESENT ILLNESS: This is a 79 year old female with PMH of AFib (on Pradaxa), DM (on metformin), Dementia, and stroke. Patient was AOx2 upon examination, and had no recollection of why she was at the hospital. Son stated that the patient lives alone and has had worsening forgetfulness over the past 12 months. Around 9AM on day of admission, she called the police to report that her 9 year old son was missing (he is much older). She was then brought to the ER for dementia/AMS , and family reported no acute changes in her mental status.Upon presentation to the ER, she was found to be in AFib with RVR. As per family, she was diagnosed with AFib after she suffered a stroke after undergoing surgery for breast CA. She was on Wafarin at the time (family not sure why), which was stopped resulting in a stroke, and she was diagnosed with AFib shortly after. Family not sure if she has paroxysmal/persistent type, not sure when her last Echo was done. She is currently on Pradaxa, but the patient may have been missing doses due to her dementia. She was due to see her admitting representative (Dr. Gutierrez) this week. She had an MRI in September 2018 at [facility] and is currently on Donepazil 5mg daily for Alzheimer's. She denied any fevers, chills, chest pain, palpitations, nausea, vomiting, diarrhea, SOB, or dizziness, and stated that she feels fine. Ct of head performed and showed encephalomalacia/chronic infarct in right posterior cerebral artery territory involving right posterior temporal and occipital lobe without interval change from prior MRI. No acute intracranial pathology identified. She was seen in nursing area this morning, and as indicated she did not sleep during the night. The patient was able to tell me that she is in the hospital but nurse indicated that earlier she did not know she was at the hospital. She was not able to tell me the name of the hospital and I had to tell her that she is at [facility]. She was able to tell me that it's 2019 but guessed the month to be May and I reminded her that it 's June. She did not know the name of the president until I informed her of the first name and then she was able to tell me the last name. Recent Travel: denies PAST MEDICAL HISTORY: As listed in HPI Family History HTN PAST SURGICAL HISTORY: Surgery for Breast CA 7 years ago (Family unsure of type) GB removal approximately 20 years ago Social History: Smoking: quit many years ago, smoked 1/2 ppd for approximately 30-40 years Alcohol: denies Drugs: denies REVIEW OF SYSTEMS CONSTITUTIONAL: Absent: fever, chills, diaphoresis, generalized weakness, malaise, loss of appetite, weight change HEENT: Absent: rhinorrhea, nasal congestion, throat pain, throat swelling, difficulty swallowing, mouth swelling, ear pain, eye pain, visual changes CARDIOVASCULAR: Absent: chest pain, syncope, palpitations, irregular heart rate, lightheadedness , peripheral edema RESPIRATORY: Absent: cough, shortness of breath, dyspnea with exertion, orthopnea, wheezing, stridor, hemoptysis GASTROINTESTINAL: Absent: abdominal pain, abdominal distension, nausea, vomiting, diarrhea, constipation, melena, hematochezia GENITOURINARY: Absent: dysuria, frequency, urgency, hesitancy, hematuria, flank pain, genital pain MUSCULOSKELETAL: Absent: myalgia, arthralgia, joint swelling, back pain, neck pain SKIN: Absent: rash, itching, pallor HEMATOLOGIC/IMMUNOLOGIC: Absent: easy bleeding, easy bruising, lymphadenopathy, frequent infections ENDOCRINE: Absent: unexplained weight gain, unexplained weight loss, heat intolerance, cold intolerance NEUROLOGIC: Absent: headache, focal weakness or paresthesias, dizziness, unsteady gait, seizure, mental status changes, bladder or bowel incontinence PSYCHIATRIC: Absent: anxiety, depression, suicidal or homicidal ideation, hallucinations. Allergies No Known Allergies Allergy (Verified 06/17/19 13:54) HOME MEDICATIONS: Home Medications Medication Instructions Recorded Atorvastatin Ca [Lipitor] 10 mg PO DAILY 06/17/19 Dabigatran Etexilate Mesylate 150 mg PO BID 06/17/19 [Pradaxa -] Diltiazem HCl [Diltiazem 24Hr ER 240 mg PO DAILY 06/17/19 (Cd)] Donepezil HCl [Aricept -] 5 mg PO DAILY 06/17/19 Escitalopram Oxalate [Lexapro -] 10 mg PO DAILY 01/21/20 Metoprolol Succinate 50 mg PO DAILY 06/17/19 metFORMIN HCL [Metformin ER 1,000 mg PO BID 06/17/19 Gastric] Active Medications Atorvastatin Calcium (Lipitor -) 10 mg PO HS [facility] Last Admin: 06/18/19 21:18 Dose: 10 mg Dabigatran (Pradaxa -) 150 mg PO BID [facility] Last Admin: 06/18/19 23:10 Dose: 150 mg Diltiazem HCl (Cardizem Injection -) 10 mg IVPUSH ONCE PRN PRN Reason: TACHYCARDIA Diltiazem HCl (Cardizem Cd -) 240 mg PO DAILY [facility] Last Admin: 06/18/19 10:36 Dose: 240 mg Donepezil HCl (Aricept -) 5 mg PO HS [facility] Last Admin: 06/18/19 21:18 Dose: 5 mg Escitalopram Oxalate (Lexapro -) 10 mg PO DAILY [facility] Insulin Aspart (Novolog Vial Sliding Scale -) 1 vial SQ ACHS [facility]; Protocol Last Admin: 06/19/19 06:35 Dose: 4 unit Melatonin (Melatonin) 5 mg PO HS PRN PRN Reason: INSOMNIA Last Admin: 06/18/19 23:10 Dose: 5 mg Metoprolol Succinate (Toprol Xl -) 50 mg PO DAILY [facility] Last Admin: 06/18/19 10:36 Dose: 50 mg PHYSICAL EXAMINATION Vital Signs Period Temp Pulse Resp BP Sys/Arevalo Pulse Ox Last 24 Hr 97.6 F-98.4 F 57-90 20-20 111-147/59-89 97 GENERAL: AOx2 to place and self HEAD: Normal with no signs of trauma. EYES: Pupils unequal R<L, round and reactive to light, extraocular movements intact, sclera anicteric, conjunctiva clear. No lid lag. EARS, NOSE, THROAT: Ears normal, nares patent, oropharynx clear without exudates. Moist mucous membranes. NECK: Normal range of motion, supple without lymphadenopathy, JVD, or masses. LUNGS: Breath sounds equal, clear to auscultation bilaterally. No wheezes, and no crackles. No accessory muscle use. HEART: Irregular rate and rhythm without murmur, rub or gallop. ABDOMEN: Soft, nontender, not distended, normoactive bowel sounds, no guarding, no rebound, no masses. No hepatomegaly or splenomegaly. MUSCULOSKELETAL: Normal range of motion at all joints. No bony deformities or tenderness. No CVA tenderness. UPPER EXTREMITIES: 2+ pulses, warm, well-perfused. No cyanosis. No clubbing. No peripheral edema. LOWER EXTREMITIES: 2+ pulses, warm, well-perfused. No calf tenderness. No peripheral edema. NEUROLOGICAL: Cranial nerves II-XII intact. Normal speech, moves extremities grossly, sensory intact PSYCHIATRIC: Cooperative. Good eye contact. Appropriate mood and affect. SKIN: Warm, dry, normal turgor, no rashes or lesions noted, normal capillary refill. CBCD WBC 7.3 K/mm3 (4.0-10.0) 06/19/19 06:20 RBC 4.79 M/mm3 (3.60-5.2) 06/19/19 06:20 Hgb 13.3 GM/dL (10.7-15.3) 06/19/19 06:20 Hct 40.4 % (32.4-45.2) 06/19/19 06:20 MCV 84.3 fl (80-96) 06/19/19 06:20 MCHC 32.9 g/dl (32.0-36.0) 06/19/19 06:20 RDW 14.6 % (11.6-15.6) 06/19/19 06:20 Plt Count 232 K/MM3 (134-434) 06/19/19 06:20 MPV 9.2 fl (7.5-11.1) 06/19/19 06:20 CMP Sodium 138 mmol/L (136-145) 06/19/19 06:20 Potassium 3.9 mmol/L (3.5-5.1) 06/19/19 06:20 Chloride 108 mmol/L (98-107) H 06/19/19 06:20 Carbon Dioxide 23 mmol/L (21-32) 06/19/19 06:20 Anion Gap 7 MMOL/L (8-16) L 06/19/19 06:20 BUN 16.4 mg/dL (7-18) 06/19/19 06:20 Creatinine 0.8 mg/dL (0.55-1.3) 06/19/19 06:20 Random Glucose 203 mg/dL (74-106) H 06/19/19 06:20 Calcium 9.1 mg/dL (8.5-10.1) 06/19/19 06:20 Total Bilirubin 0.6 mg/dL (0.2-1) 06/19/19 06:20 AST 25 U/L (15-37) 06/19/19 06:20 ALT 27 U/L (13-61) 06/19/19 06:20 Alkaline Phosphatase 119 U/L (45-117) H 06/19/19 06:20 Total Protein 6.7 g/dl (6.4-8.2) 06/19/19 06:20 Albumin 3.8 g/dl (3.4-5.0) 06/19/19 06:20 CARDIAC ENZYMES Creatine Kinase 154 U/L (26-192) 06/17/19 14:40 Troponin I < 0.02 ng/ml (0.00-0.05) 06/17/19 14:40 ASSESSMENT/PLAN: This is a 79 year old female with PMH of AFib (on Pradaxa), DM (on metformin), Dementia, and stroke. Patient was AOx2 upon examination, and had no recollection of why she was at the hospital. Son stated that the patient lives alone and has had worsening forgetfulness over the past 12 months. Around 9AM on day of admission, she called the police to report that her 9 year old son was missing (he is much older). She was then brought to the ER for dementia/AMS , and family reported no acute changes in her mental status. Upon presentation to the ER, she was found to be in AFib with RVR. She was due to see her admitting representative (Dr. Gutierrez) this week. She had an MRI in September 2018 at [facility] and is currently on Donepazil 5mg daily for Alzheimer's. She denied any fevers, chills , chest pain, palpitations, nausea, vomiting, diarrhea, SOB, or dizziness, and stated that she feels fine. Ct of head performed and showed encephalomalacia/ chronic infarct in right posterior cerebral artery territory involving right posterior temporal and occipital lobe without interval change from prior MRI. No acute intracranial pathology identified. Limited in orientation and mental status at this time, we will increase her Aricept to 10 mg daily. Will require frequent reorientation. Continue to monitor blood pressure, maintain normotensive range for stroke prevention. Defer choice of anticoagulation to cardiology, follow-up regarding atrial fibrillation. monitor diabetes, maintain euglycemic range. Continue close monitoring by staff
[2019-06-19] MEDS: DABIGATRAN ETEXILATE MESYLATE 150 MG CAPSULE PO SCH ×2 (10:45→23:01)
[2019-06-19] MEDS: ESCITALOPRAM OXALATE 10 MG TABLET PO SCH (10:45)
--- NOTE | 2019-06-19 10:51 | PN ---
Progress Note (short form) - Note Progress Note: s: no cp sob palps dizzy Current Medications Generic Name Dose Route Start Last Admin Trade Name Freq PRN Reason Stop Dose Admin Atorvastatin Calcium 10 mg 06/18/19 22:00 06/18/19 21:18 Lipitor - PO 10 mg HS KAROL Administration Dabigatran 150 mg 06/17/19 22:00 06/19/19 10:45 Pradaxa - PO 150 mg BID KAROL Administration Diltiazem HCl 10 mg 06/17/19 20:50 Cardizem Injection - IVPUSH ONCE PRN TACHYCARDIA Diltiazem HCl 240 mg 06/18/19 10:00 06/19/19 10:45 Cardizem Cd - PO 240 mg DAILY KAROL Administration Donepezil HCl 10 mg 06/19/19 22:00 Aricept - PO HS KAROL Escitalopram Oxalate 10 mg 06/19/19 10:00 06/19/19 10:45 Lexapro - PO 10 mg DAILY KAROL Administration Insulin Aspart 1 vial 06/17/19 22:00 06/19/19 06:35 Novolog Vial Sliding Scale - SQ 4 unit ACHS KAROL Administration Protocol Melatonin 5 mg 06/18/19 21:07 06/18/19 23:10 Melatonin PO 5 mg HS PRN Administration INSOMNIA Metoprolol Succinate 50 mg 06/18/19 10:00 06/19/19 10:45 Toprol Xl - PO 50 mg DAILY KAROL Administration Vital Signs Period Temp Pulse Resp BP Sys/Arevalo Pulse Ox Last 24 Hr 97.4 F-98.4 F 57-90 20-22 109-147/59-89 97-97 Constitutional: Yes: No Distress, Calm Eyes: Yes: Conjunctiva Clear, EOM Intact HENT: Yes: Atraumatic, Normocephalic Neck: Yes: Supple, Trachea Midline Respiratory: Yes: Regular, CTA Bilaterally Gastrointestinal: Yes: Normal Bowel Sounds, Soft Cardiovascular: Yes: Pulse Irregular Heart Sounds: Yes: S1, S2 Extremities: No: Cold Edema: No Integumentary: No: Jaundice Neurological: Yes: Alert Psychiatric: No: Agitated CBC, BMP 06/19/19 06:20 06/19/19 06:20 Assessment/Plan EKG: afib, LAD, PVC, no ischemic changes CXR: no congestion tele: afib, rate ok altered mental status, dementia - workup per primary afib - likely rvr due to forgetting meds - replete lytes for K>4, Mg >2 - cont pradaxa, cardizem, metoprolol - rate improved with meds, monitor on tele - echo here very tds, on my review LVEF appears mildly reduced. would repeat as outpt to monitor. HLD - cont statin DM - manage per primary
--- NOTE | 2019-06-19 13:02 | PN ---
Physical Exam: SUBJECTIVE: Patient seen and examined at bedside. No acute events overnight. She offers no complaints today. She denies dysuria/hematuria. OBJECTIVE: Vital Signs Temp Pulse Resp BP Pulse Ox 98.8 F 78 22 H 147/73 97 06/19/19 14:00 06/19/19 14:00 06/19/19 09:00 06/19/19 14:00 06/19/19 09:00 GENERAL: AOx3, in no acute distress, sitting in wheel chair at nurses' station HEAD: NCAT EYES: BUBBA, EOMI, conjunctiva clear. ENT: Ears normal, nares patent, oropharynx clear without exudates. Moist mucous membranes. NECK: Normal range of motion, supple without lymphadenopathy, JVD, or masses. LUNGS: CTAB. No wheezes, and no crackles. No accessory muscle use. HEART: Irregularly irregular. No murmurs. ABDOMEN: Soft, BS present in all 4 quadrants, non-distended, no JVD, MUSCULOSKELETAL: No bony deformities or tenderness. No CVA tenderness. UPPER EXTREMITIES: 2+ pulses, warm, well-perfused. No cyanosis. No clubbing. No peripheral edema. LOWER EXTREMITIES: 2+ pulses, warm, well-perfused. No calf tenderness. No peripheral edema. NEUROLOGICAL: No focal deficits. Cranial nerves II-XII intact. Normal speech. Gait not appreciated. PSYCHIATRIC: Cooperative. Good eye contact. Appropriate mood and affect. SKIN: Warm, dry, normal turgor, no rashes or lesions noted, normal capillary refill. Laboratory Results - last 24 hr 06/18/19 06/18/19 06/19/19 17:09 21:15 05:51 WBC RBC Hgb Hct MCV MCH MCHC RDW Plt Count MPV Sodium Potassium Chloride Carbon Dioxide Anion Gap BUN Creatinine Est GFR (CKD-EPI)AfAm Est GFR (CKD-EPI)NonAf POC Glucometer 234 216 203 Random Glucose Hemoglobin A1c % Calcium Total Bilirubin AST ALT Alkaline Phosphatase Total Protein Albumin Vitamin B12 06/19/19 06/19/19 06/19/19 06:20 06:20 06:20 WBC 7.3 RBC 4.79 Hgb 13.3 Hct 40.4 MCV 84.3 MCH 27.8 MCHC 32.9 RDW 14.6 Plt Count 232 MPV 9.2 Sodium 138 Potassium 3.9 Chloride 108 H Carbon Dioxide 23 Anion Gap 7 L BUN 16.4 Creatinine 0.8 Est GFR (CKD-EPI)AfAm 81.27 Est GFR (CKD-EPI)NonAf 70.12 POC Glucometer Random Glucose 203 H Hemoglobin A1c % 8.2 H Calcium 9.1 Total Bilirubin 0.6 AST 25 ALT 27 Alkaline Phosphatase 119 H Total Protein 6.7 Albumin 3.8 Vitamin B12 1276 H 06/19/19 11:18 WBC RBC Hgb Hct MCV MCH MCHC RDW Plt Count MPV Sodium Potassium Chloride Carbon Dioxide Anion Gap BUN Creatinine Est GFR (CKD-EPI)AfAm Est GFR (CKD-EPI)NonAf POC Glucometer 200 Random Glucose Hemoglobin A1c % Calcium Total Bilirubin AST ALT Alkaline Phosphatase Total Protein Albumin Vitamin B12 Active Medications Atorvastatin Calcium (Lipitor -) 10 mg PO HS [facility] Last Admin: 06/18/19 21:18 Dose: 10 mg Dabigatran (Pradaxa -) 150 mg PO BID [facility] Last Admin: 06/19/19 10:45 Dose: 150 mg Diltiazem HCl (Cardizem Injection -) 10 mg IVPUSH ONCE PRN PRN Reason: TACHYCARDIA Diltiazem HCl (Cardizem Cd -) 240 mg PO DAILY [facility] Last Admin: 06/19/19 10:45 Dose: 240 mg Donepezil HCl (Aricept -) 10 mg PO HS [facility] Escitalopram Oxalate (Lexapro -) 10 mg PO DAILY [facility] Last Admin: 06/19/19 10:45 Dose: 10 mg Insulin Aspart (Novolog Vial Sliding Scale -) 1 vial SQ [facility]; Protocol Last Admin: 06/19/19 13:28 Dose: 2 unit Melatonin (Melatonin) 5 mg PO HS PRN PRN Reason: INSOMNIA Last Admin: 06/18/19 23:10 Dose: 5 mg Metoprolol Succinate (Toprol Xl -) 50 mg PO DAILY [facility] Last Admin: 06/19/19 10:45 Dose: 50 mg ASSESSMENT/PLAN: 79 y/o female PMH of DM, Afib, dementia, and stroke. She presented to the ER for dementia, found to be in AFib w RVR on presentation, and was admitted for management of AFib w RVR. Awaiting placement at SNF to help with meds. Plan to have [employer] at home. # Dementia - Neuro rec: Increase aricept to 10 mg PO QD with frequent reorientation - CT head: No acute pathology - UA: 2+ LE and nitrites but no dysuria or hematuria - Home regimen includes: donepezil 5 mg po hs # Afib with RVR - Continue home regimen: diltiazem 240 mg PO QD, metoprolol 50 mg PO QD, Pradaxa (dabigatran) 150 mg PO BID # Pyuria - UA: 2+ LE and nitrites but no dysuria or hematuria - Asymptomatic - Awaiting urine cx # F/E/N - PO - Cont. to monitor - Diabetic diet # DVT prophylaxis - Heparin SQ # Disposition - Continuous cardiac monitoring - Pt likely forgetting to take her medications. She requires assistance from case management for better adherence. Elvin Donato MD Visit type - Emergency Visit Emergency Visit: No - New Patient This patient is new to me today: No - Critical Care Critical Care patient: No ATTENDING PHYSICIAN STATEMENT I saw and evaluated the patient. I reviewed the resident's note and discussed the case with the resident. I agree with the resident's findings and plan as documented. SUBJECTIVE: OBJECTIVE: ASSESSMENT AND PLAN:
--- NOTE | 2019-06-19 17:00 | PN ---
Teaching Attending Note Name of Resident: Foster Cook ATTENDING PHYSICIAN STATEMENT I saw and evaluated the patient. I reviewed the resident's note and discussed the case with the resident. I agree with the resident's findings and plan as documented. SUBJECTIVE: No fever or chills. No pain, no SOB . OBJECTIVE: NAD, awake, alert, not oriented to place, age, or time . CV: irreg irreg Lungs: CTAB Ext: No edema or erythema on lower extremities. ASSESSMENT AND PLAN: 79 y/o lady with h/o Afib, DM, dementia, stroke, breast ca,CCY, who presented due to worsening chronic confusion 1- Worsening dementia. cont increased dose of aricept 2- A fib with RVR: likely due to non compliance - cont her home cardizem and toprol. - cont pradaxa. 3- Asymptomatic pyuria. no signs of UTI. 4- H/o stroke: cont dabigatran. rehab placement tomorrow
[2019-06-19] MEDS ORDERED: PT OWN MED DRAWER 7, Y5N ONE (21:21)
[2019-06-19] MEDS: MELATONIN 5 MG TABLETS PO PRN (21:23)
[2019-06-19] MEDS: ATORVASTATIN CA 10 MG TABLET (FP) PO SCH (21:24)
[2019-06-19] MEDS ORDERED: DONEPEZIL HCL 10 MG TABLET (FP) PO SCH (22:00)
[2019-06-20] MEDS: INSULIN SLIDING SCALE (NOVOLOG) 1 VIAL SQ SCH ×2 (06:39→12:18)
--- NOTE | 2019-06-20 08:31 | PN ---
Progress Note (short form) - Note Progress Note: Neurology CHIEF COMPLAINT: Dementia for the past 12 months, found to be in AFib w RVR on presentation PCP: Dr. Cordoba HISTORY OF PRESENT ILLNESS: This is a 79 year old female with PMH of AFib (on Pradaxa), DM (on metformin), Dementia, and stroke. Patient was AOx2 upon examination, and had no recollection of why she was at the hospital. Son stated that the patient lives alone and has had worsening forgetfulness over the past 12 months. Around 9AM on day of admission, she called the police to report that her 9 year old son was missing (he is much older). She was then brought to the ER for dementia/AMS , and family reported no acute changes in her mental status.Upon presentation to the ER, she was found to be in AFib with RVR. As per family, she was diagnosed with AFib after she suffered a stroke after undergoing surgery for breast CA. She was on Wafarin at the time (family not sure why), which was stopped resulting in a stroke, and she was diagnosed with AFib shortly after. Family not sure if she has paroxysmal/persistent type, not sure when her last Echo was done. She is currently on Pradaxa, but the patient may have been missing doses due to her dementia. She was due to see her traffic court referee (Dr. Gutierrez) this week. She had an MRI in September 2018 at [facility] and is currently on Donepazil 5mg daily for Alzheimer's. She denied any fevers, chills, chest pain, palpitations, nausea, vomiting, diarrhea, SOB, or dizziness, and stated that she feels fine. Ct of head performed and showed encephalomalacia/chronic infarct in right posterior cerebral artery territory involving right posterior temporal and occipital lobe without interval change from prior MRI. No acute intracranial pathology identified. This morning, the patient was awake and alert , lying in bed, asking why she is in the hospital. She could not come me the month or the year. Informed her that I had adjusted the Aricept to 10 mg and she was in agreement. Active Medications Atorvastatin Calcium (Lipitor -) 10 mg PO HS [facility] Last Admin: 06/19/19 21:24 Dose: 10 mg Dabigatran (Pradaxa -) 150 mg PO BID [facility] Last Admin: 06/19/19 23:01 Dose: 150 mg Diltiazem HCl (Cardizem Injection -) 10 mg IVPUSH ONCE PRN PRN Reason: TACHYCARDIA Diltiazem HCl (Cardizem Cd -) 240 mg PO DAILY [facility] Last Admin: 06/19/19 10:45 Dose: 240 mg Donepezil HCl (Aricept -) 10 mg PO HS [facility] Last Admin: 06/19/19 21:23 Dose: 10 mg Escitalopram Oxalate (Lexapro -) 10 mg PO DAILY [facility] Last Admin: 06/19/19 10:45 Dose: 10 mg Insulin Aspart (Novolog Vial Sliding Scale -) 1 vial SQ ACHS [facility]; Protocol Last Admin: 06/20/19 06:39 Dose: Not Given Melatonin (Melatonin) 5 mg PO HS PRN PRN Reason: INSOMNIA Last Admin: 06/19/19 21:23 Dose: 5 mg Metoprolol Succinate (Toprol Xl -) 50 mg PO DAILY [facility] Last Admin: 06/19/19 10:45 Dose: 50 mg PHYSICAL EXAMINATION Vital Signs Period Temp Pulse Resp BP Sys/Arevalo Pulse Ox Last 24 Hr 97.4 F-99.2 F 77-88 19-22 109-147/67-81 97-98 GENERAL: AOx2 to place and self HEAD: Normal with no signs of trauma. EYES: Pupils unequal R<L, round and reactive to light, extraocular movements intact, sclera anicteric, conjunctiva clear. No lid lag. EARS, NOSE, THROAT: Ears normal, nares patent, oropharynx clear without exudates. Moist mucous membranes. NECK: Normal range of motion, supple without lymphadenopathy, JVD, or masses. LUNGS: Breath sounds equal, clear to auscultation bilaterally. No wheezes, and no crackles. No accessory muscle use. HEART: Irregular rate and rhythm without murmur, rub or gallop. ABDOMEN: Soft, nontender, not distended, normoactive bowel sounds, no guarding, no rebound, no masses. No hepatomegaly or splenomegaly. MUSCULOSKELETAL: Normal range of motion at all joints. No bony deformities or tenderness. No CVA tenderness. UPPER EXTREMITIES: 2+ pulses, warm, well-perfused. No cyanosis. No clubbing. No peripheral edema. LOWER EXTREMITIES: 2+ pulses, warm, well-perfused. No calf tenderness. No peripheral edema. NEUROLOGICAL: Cranial nerves II-XII intact. Normal speech, moves extremities grossly, sensory intact PSYCHIATRIC: Cooperative. Good eye contact. Appropriate mood and affect. SKIN: Warm, dry, normal turgor, no rashes or lesions noted, normal capillary refill. CBCD WBC 7.3 K/mm3 (4.0-10.0) 06/19/19 06:20 RBC 4.79 M/mm3 (3.60-5.2) 06/19/19 06:20 Hgb 13.3 GM/dL (10.7-15.3) 06/19/19 06:20 Hct 40.4 % (32.4-45.2) 06/19/19 06:20 MCV 84.3 fl (80-96) 06/19/19 06:20 MCHC 32.9 g/dl (32.0-36.0) 06/19/19 06:20 RDW 14.6 % (11.6-15.6) 06/19/19 06:20 Plt Count 232 K/MM3 (134-434) 06/19/19 06:20 MPV 9.2 fl (7.5-11.1) 06/19/19 06:20 CMP Sodium 138 mmol/L (136-145) 06/19/19 06:20 Potassium 3.9 mmol/L (3.5-5.1) 06/19/19 06:20 Chloride 108 mmol/L (98-107) H 06/19/19 06:20 Carbon Dioxide 23 mmol/L (21-32) 06/19/19 06:20 Anion Gap 7 MMOL/L (8-16) L 06/19/19 06:20 BUN 16.4 mg/dL (7-18) 06/19/19 06:20 Creatinine 0.8 mg/dL (0.55-1.3) 06/19/19 06:20 Random Glucose 203 mg/dL (74-106) H 06/19/19 06:20 Calcium 9.1 mg/dL (8.5-10.1) 06/19/19 06:20 Total Bilirubin 0.6 mg/dL (0.2-1) 06/19/19 06:20 AST 25 U/L (15-37) 06/19/19 06:20 ALT 27 U/L (13-61) 06/19/19 06:20 Alkaline Phosphatase 119 U/L (45-117) H 06/19/19 06:20 Total Protein 6.7 g/dl (6.4-8.2) 06/19/19 06:20 Albumin 3.8 g/dl (3.4-5.0) 06/19/19 06:20 CARDIAC ENZYMES Creatine Kinase 154 U/L (26-192) 06/17/19 14:40 Troponin I < 0.02 ng/ml (0.00-0.05) 06/17/19 14:40 ASSESSMENT/PLAN: This is a 79 year old female with PMH of AFib (on Pradaxa), DM (on metformin), Dementia, and stroke. Patient was AOx2 upon examination, and had no recollection of why she was at the hospital. Son stated that the patient lives alone and has had worsening forgetfulness over the past 12 months. Around 9AM on day of admission, she called the police to report that her 9 year old son was missing (he is much older). She was then brought to the ER for dementia/AMS , and family reported no acute changes in her mental status. Upon presentation to the ER, she was found to be in AFib with RVR. She was due to see her traffic court referee (Dr. Gutierrez) this week. She had an MRI in September 2018 at [facility] and is currently on Donepazil 5mg daily for Alzheimer's. She denied any fevers, chills , chest pain, palpitations, nausea, vomiting, diarrhea, SOB, or dizziness, and stated that she feels fine. Ct of head performed and showed encephalomalacia/ chronic infarct in right posterior cerebral artery territory involving right posterior temporal and occipital lobe without interval change from prior MRI. No acute intracranial pathology identified. Remains limited in orientation and mental status at this time, we will increase her Aricept to 10 mg daily. Will require frequent reorientation. Continue to monitor blood pressure, maintain normotensive range for stroke prevention. Defer choice of anticoagulation to cardiology, follow-up regarding atrial fibrillation. monitor diabetes, maintain euglycemic range. Continue close monitoring by staff. May require further outpatient assessment, continue medical optimization for now.
--- NOTE | 2019-06-20 09:51 | PN ---
Progress Note, Physician Chief Complaint: Comfortable No acute distress TELE: AF, controlled. - Current Medication List Current Medications: Active Medications Atorvastatin Calcium (Lipitor -) 10 mg PO HS [facility] Last Admin: 06/19/19 21:24 Dose: 10 mg Dabigatran (Pradaxa -) 150 mg PO BID [facility] Last Admin: 06/19/19 23:01 Dose: 150 mg Diltiazem HCl (Cardizem Injection -) 10 mg IVPUSH ONCE PRN PRN Reason: TACHYCARDIA Diltiazem HCl (Cardizem Cd -) 240 mg PO DAILY [facility] Last Admin: 06/19/19 10:45 Dose: 240 mg Donepezil HCl (Aricept -) 10 mg PO HS [facility] Last Admin: 06/19/19 21:23 Dose: 10 mg Escitalopram Oxalate (Lexapro -) 10 mg PO DAILY [facility] Last Admin: 06/19/19 10:45 Dose: 10 mg Insulin Aspart (Novolog Vial Sliding Scale -) 1 vial SQ [facility]; Protocol Last Admin: 06/20/19 06:39 Dose: Not Given Melatonin (Melatonin) 5 mg PO HS PRN PRN Reason: INSOMNIA Last Admin: 06/19/19 21:23 Dose: 5 mg Metoprolol Succinate (Toprol Xl -) 50 mg PO DAILY [facility] Last Admin: 06/19/19 10:45 Dose: 50 mg - Objective Vital Signs: Vital Signs Temperature 99.2 F 06/20/19 06:59 Pulse Rate 77 06/20/19 06:59 Respiratory Rate 20 06/20/19 06:59 Blood Pressure 130/81 06/20/19 06:59 O2 Sat by Pulse Oximetry (%) 98 06/19/19 21:00 Constitutional: Yes: No Distress, Calm Cardiovascular: Yes: Pulse Irregular Respiratory: Yes: CTA Bilaterally Gastrointestinal: Yes: Soft Edema: No Neurological: Yes: Alert, Oriented Labs: CBC, BMP 06/19/19 06:20 06/19/19 06:20 INR, PTT INR 1.34 (0.83-1.09) H 06/17/19 14:40 - ....Imaging EKG: Image Reviewed Assessment/Plan Assessment/Plan EKG: afib, LAD, PVC, no ischemic changes CXR: no congestion tele: afib, rate ok altered mental status, dementia - workup per primary afib: - likely rvr due to forgetting meds - replete lytes for K>4, Mg >2 - cont pradaxa, cardizem, metoprolol - rate improved with meds, monitor on tele - echo here very tds, on my review LVEF appears mildly reduced. would repeat as outpt to monitor. -D/C TELE HLD: - cont statin DM: - manage per primary
[2019-06-20] MEDS ORDERED: PT OWN MED DRAWER 7, Y5N ONE (10:08)
[2019-06-20] MEDS: ESCITALOPRAM OXALATE 10 MG TABLET PO SCH (10:09)
[2019-06-20] MEDS: DABIGATRAN ETEXILATE MESYLATE 150 MG CAPSULE PO SCH (10:09)
--- NOTE | 2019-06-20 12:30 | PN ---
Teaching Attending Note Name of Resident: Zhou Weir ATTENDING PHYSICIAN STATEMENT I saw and evaluated the patient. I reviewed the resident's note and discussed the case with the resident. I agree with the resident's findings and plan as documented. SUBJECTIVE: no pain of SOB or fever. No events over night OBJECTIVE: NAD, awake, alert CV: irreg irreg Lungs: CTAB Ext: No edema or erythema on lower extremities. ASSESSMENT AND PLAN: 79 y/o lady with h/o Afib, DM, dementia, stroke, breast ca,CCY, who presented due to worsening chronic confusion 1- Worsening dementia. cont increased dose of aricept 2- A fib with RVR: likely due to non compliance - cont her home cardizem and toprol. - cont pradaxa. 3- Asymptomatic pyuria. no signs of UTI. 4- H/o stroke: cont dabigatran. rehab placement today.
[2019-06-20 12:51] VITALS: BP 120/73; PULSE 90; TEMP 97.8
--- NOTE | 2019-06-20 14:23 | DS ---
Physical Exam: SUBJECTIVE: Patient seen and examined at bedside. There were no acute events overnight. This AM she offers no new complaints. OBJECTIVE: Vital Signs Period Temp Pulse Resp BP Sys/Arevalo Pulse Ox Last 24 Hr 97.8 F-99.2 F 77-90 19-20 118-130/67-81 98-99 PHYSICAL EXAM GENERAL: AOx3, in no acute distress, sitting in wheel chair at nurses' station HEAD: NCAT EYES: BUBBA, EOMI, conjunctiva clear. ENT: Ears normal, nares patent, oropharynx clear without exudates. Moist mucous membranes. NECK: Normal range of motion, supple without lymphadenopathy, JVD, or masses. LUNGS: CTAB. No wheezes, and no crackles. No accessory muscle use. HEART: Irregularly irregular. No murmurs. ABDOMEN: Soft, BS present in all 4 quadrants, non-distended, no JVD, MUSCULOSKELETAL: No bony deformities or tenderness. No CVA tenderness. UPPER EXTREMITIES: 2+ pulses, warm, well-perfused. No cyanosis. No clubbing. No peripheral edema. LOWER EXTREMITIES: 2+ pulses, warm, well-perfused. No calf tenderness. No peripheral edema. NEUROLOGICAL: No focal deficits. Cranial nerves II-XII intact. Normal speech. Gait not appreciated. PSYCHIATRIC: Cooperative. Good eye contact. Appropriate mood and affect. SKIN: Warm, dry, normal turgor, no rashes or lesions noted, normal capillary refill. LABS Laboratory Results - last 24 hr 06/19/19 06/19/19 06/20/19 17:19 21:15 06:36 POC Glucometer 263 86 146 06/20/19 11:10 POC Glucometer 225 HOSPITAL COURSE: Date of Admission:06/17/19 79 y/o female PMH of DM, Afib, Alzheimer dementia, and stroke whom presented to the ER for worsening forgetfulness and found to be in AFib w RVR on presentation. For dementia, neuro rec: increase aricept to 10 mg PO QD with frequent reorientation. CT head: No acute pathology. UA: 2+ LE and nitrites but no dysuria or hematuria. She cont. her home regimen includes: donepezil 5 mg po hs. Her Afib with RVR was managed with home regimen of diltiazem 240 mg PO QD, metoprolol 50 mg PO QD, and Pradaxa (dabigatran) 150 mg PO BID. Extensive conversations with family were held regarding pt's ability to care for herself. [facility] lives [facility] and arrangements were made for transport to SNF closer to his home; case management assisting greatly in organizing appropriate insurance coverage for pt. Date of Discharge: 06/20/19 Minutes to complete discharge: 40 Discharge Summary Problems reviewed: Yes Reason For Visit: RAPID ATRIAL FIBRILLATION - Instructions Diet, Activity, Other Instructions: YOUR VISIT You came to the hospital because you were less alert than usual. You were admitted to the hospital for care of worsening of your dementia. While here you were seen by a neurologist and ruby on rails software developer. You are now stable and may return home. MEDICATIONS Please continue to take your medications as prescribed. - Diltiazem 240 mg by mouth everyday - Metoprolol 50 mg by mouth everyday - Pradaxa (dabigatran) 150 mg by mouth twice a day - Atorvastatin 10 mg by mouth every night - Escitalopram 10 mg by mouth everyday - Metformin 1,000 mg by mouth twice a day MEDICATION CHANGE: - Donepezil 10 mg by mouth everyday (increased dosage) ADDITIONAL CARE Please make an appointment to see your primary care provider, Dr. Cordoba, 1 week from today. Please make an appointment to see a ruby on rails software developer in 1 week. A referral has to Dr. Baez has been provided. Please make an appointment to see a neurologist in 1 week. A referral has to Dr. Chicas has been provided. ADDITIONAL INFORMATION Please call 911 or come directly to the emergency department if you experience unusual headache, vision change, shortness of breath, chest pain, numbness, tingling, loss of alertness/awareness, loss of function, unusual bleeding or any alarming symptoms. Referrals: Marc Baez MD [Staff Physician] - 1 Week Miguel Chicas MD [Staff Physician] - 1 Week Kajal Cordoba MD [Primary Care Provider] - 1 Week Disposition: RESIDENTIAL FACILITY - Home Medications Comprehensive Discharge Medication List: Ambulatory Orders Atorvastatin Ca [Lipitor] 10 mg PO DAILY 06/17/19 Dabigatran Etexilate Mesylate [Pradaxa -] 150 mg PO BID 06/17/19 Diltiazem HCl [Diltiazem 24Hr ER (Cd)] 240 mg PO DAILY 06/17/19 Escitalopram Oxalate [Lexapro -] 10 mg PO DAILY 06/17/19 Metoprolol Succinate 50 mg PO DAILY 06/17/19 metFORMIN HCL [Metformin ER Gastric] 1,000 mg PO BID 06/17/19 Donepezil HCl [Aricept -] 10 mg PO HS 30 Days #30 tablet 06/20/19 This patient is new to me today: No Emergency Visit: No Critical Care patient: No - Discharge Referral Referred to [facility] No ATTENDING PHYSICIAN STATEMENT I saw and evaluated the patient. I reviewed the resident's note and discussed the case with the resident. I agree with the resident's findings and plan as documented. SUBJECTIVE: OBJECTIVE: ASSESSMENT AND PLAN:
== END 2019-06-20 13:30 | DRG 57 ==
LOC: JER 13:47 → JERBED 19:22 → J4W 06-18 14:11
PROVIDERS: ADMIT Internal Medicine; ATTEND Internal Medicine
DX: G30.9 Alzheimer's disease, unspecified (principal); I48.91 Unspecified atrial fibrillation; E11.9 Type 2 diabetes mellitus without complications; E87.6 Hypokalemia; R62.7 Adult failure to thrive; Z68.31 Body mass index [BMI] 31.0-31.9, adult; E66.9 Obesity, unspecified; R41.82 Altered mental status, unspecified; E83.42 Hypomagnesemia; E78.5 Hyperlipidemia, unspecified; R82.81 Pyuria; Z86.73 Personal history of transient ischemic attack (TIA), and cerebral infarction without residual deficits; Z85.3 Personal history of malignant neoplasm of breast; F02.80 Dementia in other diseases classified elsewhere, unspecified severity, without behavioral disturbance, psychotic disturbance, mood disturbance, and anxiety
CPT/HCPCS: 36415; 70450-TC; 71045-TC-FY; 80053; 81003; 82550; 82553; 82607; 82962; 83036; 83735; 84443; 84484; 85025; 85027; 85610; 93005; 93010; 93306-TC; 97116-GP; 97161-GP; 99285-25